=== PATIENT | female | born 1965 | race Caucasian/White ===

== ENCOUNTER 2018-08-06 06:53 | Emergency (ER) | payer BC ==
[~2018-08-06] VITALS: Ht 165.1 cm; Wt 60.5 kg
[2018-08-06] MEDS ORDERED: MULTIPLE VITAM1 EACH PO (07:06)
[2018-08-06] MEDS ORDERED: NORCO 10-325 T1 EACH PO (08:41)
[2018-08-06 09:09] VITALS: BP 107/51
== END 2018-08-06 08:45 | disposition home or self-care (01) ==
LOC: ED 06:53
DX: S52.502A Unspecified fracture of the lower end of left radius, initial encounter for closed fracture (principal); S52.501A Unspecified fracture of the lower end of right radius, initial encounter for closed fracture; C50.919 Malignant neoplasm of unspecified site of unspecified female breast; Z98.84 Bariatric surgery status; W01.0XXA Fall on same level from slipping, tripping and stumbling without subsequent striking against object, initial encounter; Y92.830 Public park as the place of occurrence of the external cause

== ENCOUNTER → 2018-08-06 | Outpatient (CLI) | payer BC ==
[~2018-08-06] MED LIST: MULTIPLE VITAM1 EACH PO; NORCO 10-325 T1 EACH PO
[2018-08-06 09:09] VITALS: BP 107/51
== END ==
LOC: RAD 13:56
DX: S52.501S Unspecified fracture of the lower end of right radius, sequela (principal)

== ENCOUNTER → 2023-05-11 | Day surgery (SDC) | payer BC | END | disposition home or self-care (01) | LOC: MSO 07:21 | DX: Z12.11 Encounter for screening for malignant neoplasm of colon (principal); D12.8 Benign neoplasm of rectum; Z85.3 Personal history of malignant neoplasm of breast | CPT/HCPCS: 00811; J2704; J3010; J7120 ==

== ENCOUNTER → 2023-11-26 | Outpatient (CLI) | payer BC | LOC: LAB 10:36 | DX: R73.9 Hyperglycemia, unspecified (principal) ==

== ENCOUNTER → 2024-06-29 | Outpatient (CLI) | payer BC | LOC: MAMMO 08:30 → RAD 09:24 → MAMMO 09:30 | DX: Z13.820 Encounter for screening for osteoporosis (principal); M81.0 Age-related osteoporosis without current pathological fracture ==

== ENCOUNTER → 2024-07-22 | Outpatient (CLI) | payer BC | LOC: RAD 07:17 | DX: M51.360 Other intervertebral disc degeneration, lumbar region with discogenic back pain only (principal); M43.16 Spondylolisthesis, lumbar region; M47.816 Spondylosis without myelopathy or radiculopathy, lumbar region; M48.061 Spinal stenosis, lumbar region without neurogenic claudication; M47.817 Spondylosis without myelopathy or radiculopathy, lumbosacral region ==

== ENCOUNTER → 2024-08-17 | Outpatient (CLI) | payer BC | LOC: RAD 07:00 | DX: N28.1 Cyst of kidney, acquired (principal); K76.89 Other specified diseases of liver; N28.89 Other specified disorders of kidney and ureter ==